=== PATIENT | male | born 1985 | race Caucasian/White ===

== ENCOUNTER 2017-02-01 17:38 | Emergency (ER) | payer SELFPAY ==
[~2017-02-01] VITALS: Ht 182.9 cm; Wt 77.1 kg
[2017-02-01 22:30] VITALS: BP 116/78
[2017-02-01] MEDS ORDERED: IBUPROFEN 600 MG TAB PO ONE (22:30)
== END 2017-02-01 22:39 ==
LOC: ER 17:38
DX: S40.012A Contusion of left shoulder, initial encounter (principal); V89.2XXA Person injured in unspecified motor-vehicle accident, traffic, initial encounter; Y93.89 Activity, other specified; Y92.89 Other specified places as the place of occurrence of the external cause; Y99.8 Other external cause status
CPT/HCPCS: 73030